=== PATIENT | male | born 1980 | race Two or more races ===

== ENCOUNTER 2019-05-22 11:46 | Emergency (ER) | payer SELFPAY ==
[2019-05-22 11:50] VITALS: BP 145/98
[2019-05-22] MEDS ORDERED: LOPE2TAB27 PO (12:32)
[2019-05-22] MEDS ORDERED: CLON0.2T PO (12:32)
[2019-05-22] MEDS ORDERED: ONDA4TAB12 PO (12:32)
--- NOTE | 2019-05-22 13:14 | PHYS DOC ---
Past Medical History Past Medical History: No Pertinent History Past Surgical History: Other Additional Past Surgical Histo: "hand" Additional Information: ecigarette Alcohol Use: Rarely Social History Narrative: bupronorphin-naloxon for withdrawal program Adult General Chief Complaint Chief Complaint: WITHDRAWL HPI HPI Patient is a 38 year old male who presents with chief complaint of withdrawal symptoms he just took himself off Suboxone he had been going every month he was doing really well and that he decided to this come off of it he has had withdrawal symptoms for the last 3 or 4 days loose stool just feeling nauseous vomiting anxious just not doing well. The first time he couldn't get into his Suboxone doctors probably on Thursday at the earliest. He wanted to come in to see if he gets Suboxone. Review of Systems Review of Systems Eyes: Denies change in visual acuity, redness, or eye pain [] HENT: Denies nasal congestion or sore throat [] Respiratory: Denies cough or shortness of breath [] Integument: Denies rash or skin lesions [] Neurologi All other systems were reviewed and found to be within normal limits, except as documented in this note. Allergies Allergies Allergies Coded Allergies Type Severity Reaction Last Updated Verified meperidine Allergy Intermediate 05/22/19 Yes Physical Exam Physical Exam Constitutional: Well developed, well nourished, no acute distress, non-toxic appearance. [] HENT: Normocephalic, atraumatic, bilateral external ears normal, oropharynx moist, no oral exudates, nose normal. [] Eyes: PERRLA, EOMI, conjunctiva normal, no discharge. [] Neck: Normal range of motion, no tenderness, supple, no stridor. [] Cardiovascular:Heart rate regular rhythm, no murmur [] Lungs & Thorax: Bilateral breath sounds clear to auscultation [] Abdomen: Bowel sounds normal, soft, no tenderness, no masses, no pulsatile masses. [] Skin: Warm, dry, no erythema, no rash. [] Back: No tenderness, no CVA tenderness. [] Extremities: No tenderness, no cyanosis, no clubbing, ROM intact, no edema. [] Neurologic: Alert and oriented X 3, normal motor function, normal sensory function, no focal deficits noted. [] Psychologic: Mild anxiety the patient overall does appear somewhat comfortable Current Patient Data Vital Signs Vital Signs Date Time Temp Pulse Resp B/P (MAP) Pulse Ox O2 Delivery O2 Flow Rate FiO2 05/22/19 11:50 98.9 72 18 145/98 (114) 98 Room Air 98.9 EKG EKG [] Radiology/Procedures Radiology/Procedures [] Course & Med Decision Making Course & Med Decision Making Pertinent Labs and Imaging studies reviewed. (See chart for details) []Symptomatically treatment provided and recommended and encouraged follow-up for Suboxone which has been working so well for him. Dragon Disclaimer Dragon Disclaimer This electronic medical record was generated, in whole or in part, using a voice recognition dictation system. Departure Departure Impression: Primary Impression: Narcotic withdrawal Disposition: HOME, SELF-CARE Condition: STABLE Referrals: NO PCP (PCP) Patient Instructions: Narcotic Withdrawal-Brief Scripts Loperamide Hcl (LOPERAMIDE) 2 Mg Tablet 1 TAB PO Q4HRS for loose stool for 30 Days, #40 TAB 0 Refills Prov: ANABELL SAENZ MD 05/22/19 Ondansetron (ONDANSETRON ODT) 4 Mg Tab.rapdis 1 TAB PO PRN Q6-8HRS PRN for NAUSEA/VOMITING, #16 TAB Prov: ANABELL SAENZ MD 05/22/19 Clonidine Hcl (CLONIDINE HCL) 0.2 Mg Tablet 1 TAB PO BID, #30 TAB Prov: ANABELL SAENZ MD 05/22/19 ANABELL SAENZ MD May 22, 2019 13:13
== END 2019-05-22 12:45 | disposition home or self-care (01) ==
LOC: ER 11:46
DX: F11.23 Opioid dependence with withdrawal (principal); R11.2 Nausea with vomiting, unspecified; R19.7 Diarrhea, unspecified; F41.9 Anxiety disorder, unspecified; F17.210 Nicotine dependence, cigarettes, uncomplicated; Z98.890 Other specified postprocedural states; Z88.5 Allergy status to narcotic agent
CPT/HCPCS: 99284